=== PATIENT | male | born 1960 | race Hispanic/Latino ===

== ENCOUNTER 2021-01-10 07:32 | Day surgery (SDC) | payer OTHER ==
[2021-01-08 10:36] VITALS: BP 147/80
[2021-01-08 13:43] LABS: BASOPHILS % (AUTO) 1.5 % (0.0-5.0); EOSINOPHILS % (AUTO) 4.9 % (0.0-8.0); HEMATOCRIT 43.4 % (42-54); LYMPHOCYTES % (AUTO) 27.2 % (21.0-51.0); MEAN CORPUSCULAR HEMOGLOBIN 31.3 pg (27.0-33.0); MEAN CORPUSCULAR HGB CONC 33.9 g/dL (32.0-36.0); MEAN CORPUSCULAR VOLUME 92.5 fL (79-99); MONOCYTES % (AUTO) 7.2 % (3.0-13.0); PLATELET COUNT (AUTO) 326 K/uL (130-400); RED BLOOD CELL COUNT(AUTO) 4.69 MIL/uL (4.50-6.20); RED CELL DISTRIBUTION WIDTH 12.3 % (11.0-15.5); WHITE BLOOD COUNT (AUTO) 9.4 K/uL (4.8-10.8)
[2021-01-08 13:55] LABS: POTASSIUM 4.6 mmol/L (3.5-5.1)
[2021-01-08 13:57] LABS: INR 0.97 (0.85-1.15); PROTHROMBIN TIME 10.6 SEC (9.6-11.6)
[2021-01-08 13:58] LABS: PARTIAL THROMBOPLASTIN TIME 25.3 SEC (26.3-35.5)
[2021-01-08 14:00] LABS: APPEARANCE,URINE Clear (CLEAR); BILIRUBIN,URINE Negative (NEGATIVE); COLOR,URINE Yellow (YELLOW); GLUCOSE, URINE (UA) >=1000 mg/dL (NEGATIVE); KETONES,URINE Negative (NEGATIVE); LEUKOCYTE ESTERASE ,URINE Negative (NEGATIVE); NITRATE,URINE Negative (NEGATIVE); OCCULT BLOOD,URINE Negative (NEGATIVE); PROTEIN,URINE Negative (NEGATIVE); UROBILINOGEN,URINE 0.2 mg/dL (0.2-1.0)
[2021-01-08 14:18] LABS: BACTERIA,URINE Rare /HPF (None Seen); RBC,URINE 0-1 /HPF (0-1); SQUAMOUS EPITHELIAL CELL,UR Rare /HPF (0-2); WBC,URINE 0-1 /HPF (0-1)
[~2021-01-10] VITALS: Ht 177.8 cm; Wt 97.4 kg
[2021-01-10] VITALS (9 sets, daily range): BP systolic 140–153; BP diastolic 67–80
[~2021-01-10 07:32] MED LIST: 0.9% NACL 500ML IV.SOLN 500 ML IV ONE; ASPI-1197 PO; FISH1CAP50 PO; GLIP5TAB11 PO; ISOS30TA92 PO; LISI-809 PO; METF-527 PO; METO25TA6 PO; MVIT PO; NITR0.4T50 SL; TICA90TA PO; UBID1CAP56 PO
[2021-01-10] MEDS ORDERED: LIDOCAINE HCL 400MG/20ML VIAL ONE (12:09)
[2021-01-10] MEDS ORDERED: IOHEXOL-350 50ML VIAL IV ONE (12:10)
[2021-01-10] MEDS ORDERED: BIVALIRUDIN 250 MG/VIAL IV ONE (12:10)
[2021-01-10] MEDS ORDERED: IOHEXOL 350 MG/ML 100ML INFUS..BTL IV ONE (12:10)
[2021-01-10] MEDS ORDERED: NITROGLYCERIN 2 MG VIAL IV ONE (12:10)
[2021-01-10] MEDS ORDERED: FENTANYL CITRATE PF 50 MCG/1 ML 2ML VIAL ONE (12:11)
[2021-01-10] MEDS ORDERED: MIDAZOLAM HCL 1 MG/ML 2ML VIAL ONE (12:11)
[2021-01-10] MEDS ORDERED: 0.9%NACL 1000ML 1,000 ML IV SCH (13:30)
[2021-01-10] MEDS ORDERED: DEXTROSE 50%-WATER 50 ML DISP.SYRIN IV PRN (13:30)
[2021-01-10] MEDS ORDERED: NITROGLYCERIN 0.4 MG SL TAB SL PRN (13:30)
[2021-01-10] MEDS ORDERED: METOPROLOL TARTRATE 1 MG/ML 5ML VIAL IV PRN (13:30)
[2021-01-10] MEDS ORDERED: GLUCAGON 1MG KIT 1 MG ML IM PRN (13:30)
[2021-01-10] MEDS ORDERED: INSULIN HUMULIN R 100 UNIT/ML 3ML SQ SCH (16:30)
== END 2021-01-10 18:45 | disposition home or self-care (01) ==
LOC: DAH 07:32
PROVIDERS: ATTEND Internal Medicine Cardiovascular Disease
DX: I25.728 Atherosclerosis of autologous artery coronary artery bypass graft(s) with other forms of angina pectoris (principal); I25.118 Atherosclerotic heart disease of native coronary artery with other forms of angina pectoris; I50.32 Chronic diastolic (congestive) heart failure; E78.5 Hyperlipidemia, unspecified; E66.9 Obesity, unspecified; E11.65 Type 2 diabetes mellitus with hyperglycemia; Z79.82 Long term (current) use of aspirin; Z79.84 Long term (current) use of oral hypoglycemic drugs; Z79.01 Long term (current) use of anticoagulants; Z79.899 Other long term (current) drug therapy; Z98.890 Other specified postprocedural states; Z72.89 Other problems related to lifestyle; Z68.30 Body mass index [BMI] 30.0-30.9, adult
CPT/HCPCS: 36415; 71045; 80048; 81001; 82948 ×2; 85025; 85610; 85730; 93005; 93455; A4215; A4216; A4221; A4222; A4223 ×3; A4606; A4663; C1725; C1760; C1769 ×2; C1874 ×2; C1887; C1894 ×2; C9604; J0583; J1644; J2250; J3010; J3490 ×2; J7040; Q9965 ×2; Q9967 ×2; 99156; 99157

== ENCOUNTER → 2025-04-12 | Outpatient (CLI) | payer OTHER ==
[~2025-04-12] MED LIST changes: -0.9% NACL 500ML IV.SOLN 500 ML IV ONE; -GLIP5TAB11 PO; +GLIP5TAB15 PO; -LISI-809 PO; +LISI5TAB21 PO
--- NOTE | 2025-04-16 16:08 | HMCIMG ---
CLINICAL INDICATION: Age-related osteoporosis without current pathological fracture COMPARISON: None available TECHNIQUE: Bone densitometry is performed of the lumbar spine and left hip. FINDINGS: Total BMD of lumbar spine is 1.165 g/cm2 with a T-score of 0.7 and Z-score is 1.4. Total BMD of left hip is 0.956 g/cm2 with a T-score of -0.8 and Z-score is -0.2. FRAX SCORE: The 10 year fracture risk for a major osteoporotic fracture and hip fracture 2.7% IMPRESSION: 1. Osteopenia of the left hip 2. Normal lumbar spine 3. I would recommend follow-up in 13 months. World Health Organization criteria for BMD interpretation classify patients as Normal (T-score at or above -1.0), Osteopenic (T-score between -1.0 and -2.5), or Osteoporotic (T-score at or below -2.5). FRAX SCORE: A. All treatment decisions require clinical judgment and consideration of individual patient factors, including patient preferences, comorbidities, previous drug use, risk factors not captured in the FRAX model (e.g., frailty, falls, vitamin D deficiency, increased bone turnover, interval significant decline in bone density) and possible [id number]-estimation of fracture risk by FRAX. B. In addition, the NOF Guide recommends that FDA-approved medical therapies be considered in postmenopausal women and men age greater than or equal to 50 years with a: i. Hip or vertebral (clinical or morphometric) fracture. ii. T-score of less than or equal to -2.5 at the spine or hip. iii. Ten-year fracture probability by FRAX of greater than or equal to 3% for hip fracture of greater than or equal to 20% for major osteoporotic fracture.
== END | disposition home or self-care (01) ==
LOC: RAH 12:58
PROVIDERS: ATTEND Internal Medicine
DX: M85.852 Other specified disorders of bone density and structure, left thigh (principal); M81.0 Age-related osteoporosis without current pathological fracture
CPT/HCPCS: 77080